=== PATIENT | male | born 1930 | race American Indian/Alaskan Native ===

== ENCOUNTER 2016-06-03 03:34 | Inpatient (IN) | payer MEDICARE ==
[2016-06-03] MEDS ORDERED: NACL 0.9% 1000 ML 250 ML IV ONE (05:06)
[2016-06-03 05:37] LABS: Basophils % (Auto) 0.2 % (0.0-1.8); Eosinophils % (Auto) 1.4 % (0.0-4.3); Hematocrit 20.5 % (35.5-45.6); Hemoglobin 6.4 gm/dl (11.8-15.2); Mean Corpuscular HGB Conc 31 % (32-34); Mean Corpuscular Hemoglobin 30 pg (28-32); Mean Corpuscular Volume 95 fl (84-94); Platelet Count 159 K/mm3 (140-440); Red Blood Count 2.16 M/mm3 (3.65-5.03); Red Cell Distribution Width 19.3 % (13.2-15.2); White Blood Count 5.1 K/mm3 (4.5-11.0)
[2016-06-03 05:47] LABS: INR 1.2 (0.87-1.13)
[2016-06-03 05:48] LABS: Partial Thromboplastin Time 37.8 Sec. (24.2-36.6)
[2016-06-03 05:54] LABS: Creatine Kinase MB 3.8 ng/mL (0.0-4.0)
[2016-06-03 05:56] LABS: Albumin 3.4 g/dL (3.9-5); Albumin/Globulin Ratio 1.1 %; BUN/Creatinine Ratio 18.52; Bilirubin,Total 0.4 mg/dL (0.1-1.2); Calcium 8.9 mg/dL (8.4-10.2); Chloride 101.4 mmol/L (98-107); Potassium 5.8 mmol/L (3.6-5.0); Total Protein 6.5 g/dL (6.3-8.2)
--- NOTE | 2016-06-03 06:51 | Emergency Department Report ---
HPI - General Chief Complaint: Weakness Time Seen by Provider: 06/03/16 06:36 - HPI HPI: The patient is a 85-year-old male with a history of diabetes and anemia, who presents for evaluation of generalized weakness. The patient reports progressive generalized weakness for the past 2 weeks, severe since last night, 12 hours ago, exacerbated with standing or ambulation, and improved with lying flat and resting. He states that his weakness became so severe that he could not stand up or ambulate last night, prompting presentation to the emergency department. The patient denies fever, head injury, headache, chest pain, cough, hemoptysis, abdominal pain, vision or hearing changes, smell or taste changes, paresthesias, facial drooping, slurred speech, seizure-like activity, urine or bowel incontinence or retention, or other focal neurological deficit. ED Past Medical Hx - Past Medical History Hx Hypertension: Yes Hx Heart Attack/AMI: No Hx Diabetes: Yes (15 yrs plus) Hx GERD: Yes Hx Renal Disease: Yes (stage 4 kidney disease) Hx Arthritis: Yes (KNEES, RIGHT SHOULDER) Hx Kidney Stones: Yes Hx Asthma: Yes Hx COPD: Yes Additional medical history: gout, anemia - Surgical History Hx Open Heart Surgery: Yes (PACEMAKER X2.) Hx Pacemaker: Yes (insert 15 yrs ago) Hx Internal Defibrillator: No Additional Surgical History: "worked on heart > 50 yrs ago"right knee replacement - Social History Smoking Status: Never Smoker Substance Use Type: None - Medications Home Medications: Home Medications Medication Instructions Recorded Confirmed Last Taken Type Allopurinol [Zyloprim] 300 mg PO QDAY 04/09/13 02/11/16 02/10/16 History Ferrous Sulfate [Feosol 325 MG tab] 325 mg PO DAILY 04/09/13 02/11/16 02/10/16 History Ondansetron [Zofran Odt] 4 mg PO TID PRN 04/09/13 02/11/16 02/10/16 History Potassium Chloride 20 meq PO QDAY 04/09/13 02/11/16 02/10/16 History Tamsulosin [Flomax] 0.4 mg PO QDAY 04/09/13 02/11/16 02/10/16 History Acetaminophen [Acetaminophen TAB] 2 tab PO PRN PRN 11/21/14 02/11/16 02/10/16 History Vitamin B Complex [Natural B-100] 1 tab PO DAILY 11/21/14 02/11/16 02/10/16 History Losartan/Hydrochlorothiazide 1 each PO QDAY 02/15/15 02/11/16 02/10/16 History [Hyzaar 100-12.5 TAB] Ranolazine [Ranexa] 1,000 mg PO BID 02/15/15 02/11/16 02/10/16 History glipiZIDE [glipiZIDE XL] 2.5 mg PO DAILY 02/15/15 02/11/16 02/10/16 History Desloratadine [Clarinex] 5 mg PO DAILY 02/11/16 02/11/16 02/10/16 History Meclizine [Antivert] 12.5 mg PO BID PRN 02/11/16 02/11/16 02/10/16 History metFORMIN [Glucophage] 1,000 mg PO QDAY 02/11/16 02/11/16 02/10/16 History Allopurinol [Zyloprim] 150 mg PO QDAY tablet 02/14/16 Unknown Rx Furosemide [Lasix TAB] 40 mg PO QDAY tablet 02/14/16 Unknown Rx Hydrochlorothiazide [HCTZ] 12.5 mg PO QDAY capsule 02/14/16 Unknown Rx Losartan [Cozaar] 100 mg PO QDAY tablet 02/14/16 Unknown Rx Metoprolol Xl [Metoprolol 50 mg PO QDAY tablet 02/14/16 Unknown Rx SUCCINATE ER TAB] Potassium Chloride [K-Dur] 20 meq PO QDAY tablet 02/14/16 Unknown Rx ED Review of Systems ROS: Stated complaint: GENERAL WEAKNESS Other details as noted in HPI Constitutional: Reports generalized weakness denies: fever ENT: denies: throat or neck pain Respiratory: denies: cough, shortness of breath Cardiovascular: denies: chest pain Endocrine: denies unexplained weight loss or gain Gastrointestinal: denies: abdominal pain, nausea Genitourinary: denies: dysuria Musculoskeletal: denies: leg swelling Skin: denies: rash Neurological: denies: headache Hematological/Lymphatic: denies: easy bleeding or easy bruising Psych: denies sadness or hopelessness Physical Exam - Physical Exam Vital Signs: Vital Signs 06/03/16 06/03/16 06/03/16 04:15 04:30 04:32 Temperature 97.7 F Pulse Rate 60 60 61 Respiratory 18 15 15 Rate Blood Pressure 112/43 112/43 O2 Sat by Pulse 96 98 100 Oximetry 06/03/16 06/03/16 06/03/16 04:34 04:36 04:38 Temperature Pulse Rate 60 60 60 Respiratory 21 18 18 Rate Blood Pressure 112/43 112/43 112/43 O2 Sat by Pulse 100 100 100 Oximetry 06/03/16 06/03/16 06/03/16 04:40 04:42 04:44 Temperature Pulse Rate 71 63 Respiratory 22 21 18 Rate Blood Pressure 112/43 112/43 112/43 O2 Sat by Pulse 99 89 98 Oximetry 06/03/16 06/03/16 06/03/16 04:46 04:48 04:50 Temperature Pulse Rate 60 64 60 Respiratory 14 24 17 Rate Blood Pressure 112/43 112/43 112/43 O2 Sat by Pulse 93 95 98 Oximetry 06/03/16 06/03/16 06/03/16 04:52 04:54 04:56 Temperature Pulse Rate 60 59 L 60 Respiratory 15 17 17 Rate Blood Pressure 64/31 64/31 O2 Sat by Pulse 100 92 99 Oximetry 06/03/16 06/03/16 06/03/16 04:58 05:00 05:02 Temperature Pulse Rate 63 76 60 Respiratory 18 16 26 H Rate Blood Pressure O2 Sat by Pulse 98 100 98 Oximetry 06/03/16 06/03/16 06/03/16 05:04 05:06 05:08 Temperature Pulse Rate 60 60 60 Respiratory 16 17 16 Rate Blood Pressure 50/23 64/31 O2 Sat by Pulse 98 99 99 Oximetry 06/03/16 06/03/16 06/03/16 05:10 05:12 05:14 Temperature Pulse Rate 60 61 63 Respiratory 16 18 15 Rate Blood Pressure 136/43 132/52 139/54 O2 Sat by Pulse 96 96 99 Oximetry 06/03/16 05:43 Temperature 97.7 F Pulse Rate Respiratory Rate Blood Pressure O2 Sat by Pulse Oximetry Physical Exam: General: well-nourished, well-developed, no acute distress Head: Normocephalic, atraumatic Eyes: normal sclera ENT: Mucous membranes are pale Neck: trachea midline, neck supple, No neck stiffness, no cervical adenopathy Respiratory: Breath sounds equal bilaterally, no wheezing, rales, or rhonchi Cardio: S1 and S2 present, no murmurs, rubs, gallops, capillary refill is delayed Abdomen: Normoactive bowel sounds, soft abdomen, no rigidity, no guarding or rebound tenderness Chest WALL/Back: No tenderness to palpation of the chest wall, no CVA tenderness with percussion Musc: No pitting edema Skin: No rash Neuro: Alert and oriented 3, no facial drooping, normal speech, no pronator drift, no obvious gross neuro deficits Psych: Normal affect ED Course Vital Signs 06/03/16 06/03/16 06/03/16 04:15 04:30 04:32 Temperature 97.7 F Pulse Rate 60 60 61 Respiratory 18 15 15 Rate Blood Pressure 112/43 112/43 O2 Sat by Pulse 96 98 100 Oximetry 06/03/16 06/03/16 06/03/16 04:34 04:36 04:38 Temperature Pulse Rate 60 60 60 Respiratory 21 18 18 Rate Blood Pressure 112/43 112/43 112/43 O2 Sat by Pulse 100 100 100 Oximetry 06/03/16 06/03/16 06/03/16 04:40 04:42 04:44 Temperature Pulse Rate 71 63 Respiratory 22 21 18 Rate Blood Pressure 112/43 112/43 112/43 O2 Sat by Pulse 99 89 98 Oximetry 06/03/16 06/03/16 06/03/16 04:46 04:48 04:50 Temperature Pulse Rate 60 64 60 Respiratory 14 24 17 Rate Blood Pressure 112/43 112/43 112/43 O2 Sat by Pulse 93 95 98 Oximetry 06/03/16 06/03/16 06/03/16 04:52 04:54 04:56 Temperature Pulse Rate 60 59 L 60 Respiratory 15 17 17 Rate Blood Pressure 64/31 64/31 O2 Sat by Pulse 100 92 99 Oximetry 06/03/16 06/03/16 06/03/16 04:58 05:00 05:02 Temperature Pulse Rate 63 76 60 Respiratory 18 16 26 H Rate Blood Pressure O2 Sat by Pulse 98 100 98 Oximetry 06/03/16 06/03/16 06/03/16 05:04 05:06 05:08 Temperature Pulse Rate 60 60 60 Respiratory 16 17 16 Rate Blood Pressure 50/23 64/31 O2 Sat by Pulse 98 99 99 Oximetry 06/03/16 06/03/16 06/03/16 05:10 05:12 05:14 Temperature Pulse Rate 60 61 63 Respiratory 16 18 15 Rate Blood Pressure 136/43 132/52 139/54 O2 Sat by Pulse 96 96 99 Oximetry 06/03/16 05:43 Temperature 97.7 F Pulse Rate Respiratory Rate Blood Pressure O2 Sat by Pulse Oximetry ED Medical Decision Making - Lab Data Result diagrams: 06/03/16 05:13 06/03/16 05:13 - Medical Decision Making The patient was seen and examined by myself. The patient is placed on a continuous dryout operator helper and continuous pulse ox. On initial evaluation, the patient was found to be in no distress. Evaluation orders were placed. EKG demonstrates a paced rhythm. The patient is given a small NS fluid bolus for treatment of dehydration. Lab results revealed low hemoglobin of 6.4, elevated potassium level of 5.8, elevated BUN/creatinine of 64 and 3.4 respectively. The patient is given Kayexalate for treatment of hyperkalemia. One unit of PRBCs is ordered for the patient's severe anemia. The on-call hospitalist service was contacted. They agreed to admit the patient for further treatment and close monitoring. The ED admit order was placed. The patient was admitted in guarded condition. Critical care attestation.: If time is entered above; I have spent that time in minutes in the direct care of this critically ill patient, excluding procedure time. ED Disposition Clinical Impression: Anemia requiring transfusions, Severe anemia, Weakness, Acute hyperkalemia, KHANG (acute kidney injury) Disposition: OP ADMITTED IP TO THIS HOSP Is pt being admited?: Yes Does the pt Need Aspirin: Yes Condition: Serious Referrals: LARRY CARBJAAL MD [Primary Care Provider] - 3-5 Days Time of Disposition: 06:50
[2016-06-03] MEDS ORDERED: BABY ASPIRIN PO ONE (06:53)
[2016-06-03] MEDS ORDERED: NACL 0.9% 500 ML 500 ML IV ONE ×2 (06:53→09:00)
[2016-06-03] MEDS ORDERED: KAYEXALATE PO ONE (06:55)
[2016-06-03] MEDS ORDERED: MORPHINE IV ONE (07:15)
--- NOTE | 2016-06-03 07:47 | XRay Report ---
AP CHEST History: Weakness. Findings: Compared to 02/11/16. There is poor inspiration on this exam. Heart size and pulmonary venous structures are borderline. 3-lead pacemaker device is unchanged. The lungs are clear. No evidence for pneumonia, pleural effusion or pneumothorax. Impression: Borderline heart size and pulmonary vascularity. Perhaps slightly increased since 02/11/16.
--- NOTE | 2016-06-03 08:04 | History and Physical Report ---
History of Present Illness Chief complaint: I feel weak,and tired History of present illness: 85 YO Male with HTN, DM, CHF(unknown EF), GERD, OA, Asthma, COPD, Gout, Anemia of Chronic disease presents to ED for evaluation. Pt states that he has experienced weakness for the past 2 weeks, with worsening symptoms over the past 12hrs. Pt states that his weakness and shortness of breath have become so severe that he could not stand up or ambulate. Pt acknowledges Orthopnea, PND. Pt denies fever, chills, CP, Palpitations, Trauma, NVD, prolonged travel/ immobility, Individual/Family history of EVT/PE, hemoptysis, syncope, vertigo, hematuria, BRBPR, or recent ill contacts. Past History Past Medical History: anemia, arthritis, CAD, cancer, COPD, diabetes, GERD, heart failure, hypertension, renal failure Past Surgical History: total knee replacement, Other (ICD placement) Social history: , lives with family. denies: smoking, alcohol abuse, prescription drug abuse Family history: diabetes, hypertension Medications and Allergies Allergies Allergy/AdvReac Type Severity Reaction Status Date / Time No Known Allergies Allergy Verified 09/28/13 11:10 Home Medications Medication Instructions Recorded Confirmed Last Taken Type Allopurinol [Zyloprim] 300 mg PO QDAY 04/09/13 02/11/16 02/10/16 History Ferrous Sulfate [Feosol 325 MG tab] 325 mg PO DAILY 04/09/13 02/11/16 02/10/16 History Ondansetron [Zofran Odt] 4 mg PO TID PRN 04/09/13 02/11/16 02/10/16 History Potassium Chloride 20 meq PO QDAY 04/09/13 02/11/16 02/10/16 History Tamsulosin [Flomax] 0.4 mg PO QDAY 04/09/13 02/11/16 02/10/16 History Acetaminophen [Acetaminophen TAB] 2 tab PO PRN PRN 11/21/14 02/11/16 02/10/16 History Vitamin B Complex [Natural B-100] 1 tab PO DAILY 11/21/14 02/11/16 02/10/16 History Losartan/Hydrochlorothiazide 1 each PO QDAY 02/15/15 02/11/16 02/10/16 History [Hyzaar 100-12.5 TAB] Ranolazine [Ranexa] 1,000 mg PO BID 02/15/15 02/11/16 02/10/16 History glipiZIDE [glipiZIDE XL] 2.5 mg PO DAILY 02/15/15 02/11/16 02/10/16 History Desloratadine [Clarinex] 5 mg PO DAILY 02/11/16 02/11/16 02/10/16 History Meclizine [Antivert] 12.5 mg PO BID PRN 02/11/16 02/11/16 02/10/16 History metFORMIN [Glucophage] 1,000 mg PO QDAY 02/11/16 02/11/16 02/10/16 History Allopurinol [Zyloprim] 150 mg PO QDAY tablet 02/14/16 Unknown Rx Furosemide [Lasix TAB] 40 mg PO QDAY tablet 02/14/16 Unknown Rx Hydrochlorothiazide [HCTZ] 12.5 mg PO QDAY capsule 02/14/16 Unknown Rx Losartan [Cozaar] 100 mg PO QDAY tablet 02/14/16 Unknown Rx Metoprolol Xl [Metoprolol 50 mg PO QDAY tablet 02/14/16 Unknown Rx SUCCINATE ER TAB] Potassium Chloride [K-Dur] 20 meq PO QDAY tablet 02/14/16 Unknown Rx Review of Systems All systems: negative Cardiovascular: shortness of breath Exam - Constitutional Vitals: Temp Pulse Resp BP Pulse Ox 97.7 F 63 15 139/54 99 06/03/16 05:43 06/03/16 05:14 06/03/16 05:14 06/03/16 05:14 06/03/16 05:14 General appearance: Present: mild distress, obese - EENT Eyes: Present: PERRL ENT: hearing intact, clear oral mucosa - Neck Neck: Present: supple, normal ROM - Respiratory Respiratory effort: normal Respiratory: bilateral: CTA - Cardiovascular Heart Sounds: Present: S1 & S2. Absent: rub, click - Extremities Extremities: pulses symmetrical, No edema Peripheral Pulses: within normal limits - Abdominal General gastrointestinal: Present: soft, non-tender, non-distended, normal bowel sounds Male genitourinary: Present: normal - Integumentary Integumentary: Present: clear, warm, dry - Musculoskeletal Musculoskeletal: generalized weakness - Psychiatric Psychiatric: appropriate mood/affect, intact judgment & insight - Neurologic Neurologic: CNII-XII intact, moves all extremities Results - Labs CBC & Chem 7: 06/03/16 05:13 06/03/16 05:13 Labs: Abnormal lab results 06/03/16 06/03/16 06/03/16 Range/Units 05:13 05:13 05:13 RBC 2.16 L (3.65-5.03) M/mm3 Hgb 6.4 L (11.8-15.2) gm/dl Hct 20.5 L (35.5-45.6) % MCV 95 H (84-94) fl MCHC 31 L (32-34) % RDW 19.3 H (13.2-15.2) % Lymph % (Auto) 10.6 L (13.4-35.0) % Lymph # 0.5 L (1.2-5.4) K/mm3 Seg Neutrophils % 82.3 H (40.0-70.0) % PT 15.1 H (12.2-14.9) Sec. INR 1.20 H (0.87-1.13) APTT 37.8 H (24.2-36.6) Sec. Potassium 5.8 H (3.6-5.0) mmol/L Carbon Dioxide 21 L (22-30) mmol/L BUN 63 H (9-20) mg/dL Creatinine 3.4 H (0.8-1.5) mg/dL Glucose 124 H (75-100) mg/dL Albumin 3.4 L (3.9-5) g/dL Crossmatch 06/03/16 Range/Units 05:13 RBC (3.65-5.03) M/mm3 Hgb (11.8-15.2) gm/dl Hct (35.5-45.6) % MCV (84-94) fl MCHC (32-34) % RDW (13.2-15.2) % Lymph % (Auto) (13.4-35.0) % Lymph # (1.2-5.4) K/mm3 Seg Neutrophils % (40.0-70.0) % PT (12.2-14.9) Sec. INR (0.87-1.13) APTT (24.2-36.6) Sec. Potassium (3.6-5.0) mmol/L Carbon Dioxide (22-30) mmol/L BUN (9-20) mg/dL Creatinine (0.8-1.5) mg/dL Glucose (75-100) mg/dL Albumin (3.9-5) g/dL Crossmatch See Detail Assessment and Plan - Patient Problems (1) Anemia requiring transfusions Current Visit: Yes Status: Acute Plan to address problem: PRBC transfusion, supportive care, repeat cbc in am. (2) KHANG (acute kidney injury) Current Visit: Yes Status: Acute Plan to address problem: IVF, supportive care, urine electrolytes, monitor uop q shift. (3) Hyperkalemia Current Visit: Yes Status: Acute (4) CHF (congestive heart failure) Current Visit: Yes Status: Suspected Plan to address problem: Echo, supportive care, serial cardiac enzymes, telemetry, (5) Debility Current Visit: Yes Status: Acute Plan to address problem: PT consulted, (6) DVT prophylaxis Current Visit: Yes Status: Acute
[2016-06-03] MEDS ORDERED: TYLENOL PO PRN ×2 (08:08→11:41)
[2016-06-03] MEDS ORDERED: SODIUM CHLORIDE FLUSH SYRINGE 10 ML IV PRN (08:13)
[2016-06-03] MEDS ORDERED: NACL 0.45% 1000 ML 1,000 ML IV SCH (09:00)
--- NOTE | 2016-06-03 09:03 | Admit Criteria Form ---
Admission Criteria Documentation: ANEMIA, IRON DEFICIENCY OR UNSPECIFIED Clinical Indications for Inpatient Care (Place 'X' for any and all applicable criteria): Admission is indicated for ANY ONE of the following(1)(2)(3)(4)(5)(6)(7): [X] I. Inpatient admission required rather than observation care (Also use Anemia, Iron Deficiency or Unspecified: Observation Care guideline as appropriate) because of ANY ONE of the following: [] a) Hemodynamic instability that is severe or persistent [] b) Active bleeding that cannot be rapidly controlled [] c) CVS symptoms (i.e., dyspnea, chest pain, heart failure) that are severe or persistent [] d) Neurologic symptoms (i.e., cognitive impairment, recurrent syncope or near syncope) that are severe or persistent [] e) Cardiac arrhythmias of immediate concern [] f) Acute peripheral ischemia (e.g., pulseless, cool, mottled, or cyanotic extremity) [] g) High-risk low platelet count [X] h) Acute renal failure [] i) Ongoing transfusion for blood loss (greater than 2 units) [] j) IV fluid to replace significant ongoing (eg, >24 hours) losses (> 3 L/m2 per day) [] k) Pulmonary artery catheter monitoring [] l) Supplemental oxygen or respiratory treatments for over 24 hours that are performable only in acute inpatient setting [] m) Immediate inpatient surgery [] n) Other condition, treatment or monitoring requiring inpatient admission [] II Active massive hemorrhage [] III. Active hemolysis with rapidly progressive anemia [A](6) Extended stay beyond goal length of stay may be needed for (17)(18) []a) Diagnosed cause of anemia requiring longer hospitalization (eg, active GI bleeding, immune hemolysis requiring electrophoresis, complications of malignancy requiring acute care []b) Continued emergent anemia indicators (23) []c) Transfusion reactions []d) Associated leukopenia or thrombocytopenia needing inpatient care []e) Active comorbidities (eg, renal failure, heart failure) The original [facility] Care Guidelines content created by [facility] Care Guidelines has been revised. The portions of the content which have been revised are identified through the use of italic text or in bold. [facility] Guidelines has neither reviewed nor approved the modified material. All other unmodified content is copyright [facility] Care Guidelines. Please see references footnoted in the original [facility] edition 2016 Admission Criteria Met: Yes
[2016-06-03] MEDS ORDERED: ZOFRAN ODT PO PRN (11:41)
[2016-06-03] MEDS ORDERED: ANTIVERT PO PRN (11:41)
[2016-06-03] MEDS ORDERED: NACL 0.9% 500 ML 500 ML IV NR (12:00)
[2016-06-03 20:28] LABS: Creatine Kinase MB 3.3 ng/mL (0.0-4.0)
[2016-06-03 21:16] LABS: Creatine Kinase MB 3.3 ng/mL (0.0-4.0)
[2016-06-03] MEDS ORDERED: NON-FORMULARY (Ranolazine [Ranexa] 1,000 MG) PO SCH (22:00)
[2016-06-03] MEDS: RANEXA ER PO SCH (22:17)
[2016-06-04 08:12] LABS: Albumin 3.2 g/dL (3.9-5); Albumin/Globulin Ratio 1.1 %; BUN/Creatinine Ratio 20.38; Bilirubin,Total 0.6 mg/dL (0.1-1.2); Calcium 8.8 mg/dL (8.4-10.2); Potassium 4.8 mmol/L (3.6-5.0)
[2016-06-04] MEDS: FLOMAX PO SCH (09:36)
[2016-06-04] MEDS: TOPROL XL PO SCH (09:36)
[2016-06-04] MEDS: CLARITIN PO SCH (09:36)
[2016-06-04] MEDS: FEOSOL PO SCH (09:36)
[2016-06-04] MEDS: RANEXA ER PO SCH ×2 (09:37→20:59)
[2016-06-04] MEDS: ZYLOPRIM PO SCH (09:37)
[2016-06-04] MEDS ORDERED: POTASSIUM CHLORIDE PO SCH (10:00)
[2016-06-04] MEDS ORDERED: HCTZ PO SCH (10:00)
[2016-06-04] MEDS ORDERED: K-DUR PO SCH (10:00)
[2016-06-04] MEDS ORDERED: LASIX PO SCH (10:00)
[2016-06-04] MEDS ORDERED: DESLORATADINE 5 MG PO SCH (10:00)
[2016-06-04] MEDS ORDERED: COZAAR PO SCH (10:00)
[2016-06-04] MEDS ORDERED: NON-FORMULARY (Losartan/Hydrochlorothiazide [Hyzaar 100-12.5 Tab] 1 EACH) PO SCH (10:00)
[2016-06-04 14:32] LABS: Hematocrit 26.7 % (35.5-45.6); Hemoglobin 8.6 gm/dl (11.8-15.2); Mean Corpuscular HGB Conc 32 % (32-34); Mean Corpuscular Hemoglobin 29 pg (28-32); Mean Corpuscular Volume 92 fl (84-94); Platelet Count 159 K/mm3 (140-440); Red Blood Count 2.92 M/mm3 (3.65-5.03); Red Cell Distribution Width 17.8 % (13.2-15.2); White Blood Count 5.8 K/mm3 (4.5-11.0)
--- NOTE | 2016-06-04 15:08 | Progress Note ---
Assessment and Plan Assessment and plan: (1) Anemia requiring transfusions Received blood transfusion, with appropriate rise in hemoglobin, most likely benefit from GI workup, GI consult for possible EGD (2) KHANG (acute kidney injury) /vasomotor nephropathy Due to vasomotor nephropathy, already improving with IV fluids, continue IV fluids, discontinue diuretics, ARB and all nephrotoxic agents (3) Hyperkalemia Has now resolved, discontinue potassium supplements (4) CHF (congestive heart failure) Follow-up echo, give fluids judiciously, (5) Debility PT consult, patient's lives in a detention (6) DVT prophylaxis SCDs in light of likely acute blood loss anemia History Interval history: The patient is confused and is not quite sure why he is here, he loses in the hospital to get some things checked out and fixed. Hospitalist Physical - Physical exam Narrative exam: General: Patient appears well in no distress HEENT: MMM, EOMI cardiac: S1-S2 heard lungs: clear to auscultation, abdomen: soft, nontender, nondistended bowel sounds positive extremities: no edema clubbing or cyanosis Skin: no rash or lesion Neuro: no focal deficit, demented, obeys commands, very pleasant Psych: Patient is confabulating, talking constantly, he is demented and confused. - Constitutional Vitals: Temp Pulse Resp BP Pulse Ox 98.2 F 62 20 153/66 98 06/04/16 07:45 06/04/16 09:36 06/04/16 09:34 06/04/16 09:36 06/04/16 09:25 General appearance: Present: mild distress, obese Results - Labs CBC & Chem 7: 06/04/16 13:36 06/04/16 07:36 Labs: Laboratory Last Values WBC 5.8 K/mm3 (4.5-11.0) 06/04/16 13:36 RBC 2.92 M/mm3 (3.65-5.03) L 06/04/16 13:36 Hgb 8.6 gm/dl (11.8-15.2) L 06/04/16 13:36 Hct 26.7 % (35.5-45.6) L D 06/04/16 13:36 MCV 92 fl (84-94) D 06/04/16 13:36 MCH 29 pg (28-32) 06/04/16 13:36 MCHC 32 % (32-34) 06/04/16 13:36 RDW 17.8 % (13.2-15.2) H 06/04/16 13:36 Plt Count 159 K/mm3 (140-440) 06/04/16 13:36 Lymph % (Auto) 10.6 % (13.4-35.0) L 06/03/16 05:13 [place] % (Auto) 5.5 % (0.0-7.3) 06/03/16 05:13 Eos % (Auto) 1.4 % (0.0-4.3) 06/03/16 05:13 Baso % (Auto) 0.2 % (0.0-1.8) 06/03/16 05:13 Lymph # 0.5 K/mm3 (1.2-5.4) L 06/03/16 05:13 [place] # 0.3 K/mm3 (0.0-0.8) 06/03/16 05:13 Eos # 0.1 K/mm3 (0.0-0.4) 06/03/16 05:13 Baso # 0.0 K/mm3 (0.0-0.1) 06/03/16 05:13 Seg Neutrophils % 82.3 % (40.0-70.0) H 06/03/16 05:13 Seg Neutrophils # 4.2 K/mm3 (1.8-7.7) 06/03/16 05:13 PT 15.1 Sec. (12.2-14.9) H 06/03/16 05:13 INR 1.20 (0.87-1.13) H 06/03/16 05:13 APTT 37.8 Sec. (24.2-36.6) H 06/03/16 05:13 D-Dimer 196.90 ng/mlDDU (0-234) 06/03/16 19:41 Sodium 141 mmol/L (137-145) 06/04/16 07:36 Potassium 4.8 mmol/L (3.6-5.0) 06/04/16 07:36 Chloride 104.0 mmol/L (98-107) 06/04/16 07:36 Carbon Dioxide 23 mmol/L (22-30) 06/04/16 07:36 Anion Gap 19 mmol/L 06/04/16 07:36 BUN 53 mg/dL (9-20) H 06/04/16 07:36 Creatinine 2.6 mg/dL (0.8-1.5) H 06/04/16 07:36 Estimated GFR 29 ml/min 06/04/16 07:36 BUN/Creatinine Ratio 20.38 % 06/04/16 07:36 Glucose 119 mg/dL (75-100) H 06/04/16 07:36 POC Glucose 108 (70-105) H 06/04/16 12:02 Calcium 8.8 mg/dL (8.4-10.2) 06/04/16 07:36 Total Bilirubin 0.6 mg/dL (0.1-1.2) 06/04/16 07:36 AST 14 units/L (5-40) 06/04/16 07:36 ALT 7 units/L (7-56) 06/04/16 07:36 Alkaline Phosphatase 65 units/L (35-129) 06/04/16 07:36 Total Creatine Kinase 113 units/L (55-170) 06/03/16 20:27 CK-MB (CK-2) 3.3 ng/mL (0.0-4.0) 06/03/16 20:27 CK-MB (CK-2) Rel Index 2.9 (0-4) 06/03/16 20:27 Troponin T 0.020 ng/mL (0.00-0.029) 06/03/16 20:27 NT-Pro-B Natriuret Pep 270.5 pg/mL (0-900) 06/03/16 05:13 Total Protein 6.0 g/dL (6.3-8.2) L 06/04/16 07:36 Albumin 3.2 g/dL (3.9-5) L 06/04/16 07:36 Albumin/Globulin Ratio 1.1 % 06/04/16 07:36 Blood Type A POSITIVE 06/03/16 05:13 Antibody Screen Negative 06/03/16 05:13 Crossmatch See Detail 06/03/16 05:13
--- NOTE | 2016-06-05 10:49 | Discharge Summary ---
Providers - Providers Date of Admission: 06/03/16 08:08 Attending physician: OPAL SINGH MD 06/03/16 Consult to Cardiac Rehabilitation [CONS] Routine Reason For Exam: Phase I 06/03/16 11:40 Physical Therapy Evaluation and Treat [CONS] Routine Comment: Reason For Exam: weak 06/04/16 12:26 Consult to Physician [CONS] Routine Consulting Provider: BULL WORKMAN Reason For Exam: Anemia Place consult to:: Dr. Workman Notified:: Isaac RN Phone number called:: Was contact made?: Yes If yes, spoke with:: [place]-Office Time called:: 13:12 Primary care physician: LARRY CARBAJAL Hospitalization Condition: Serious Hospital course: Elderly man who came from [place] with complaint of weakness found to have severe anemia (1) Anemia requiring transfusions Received blood transfusion, with appropriate rise in hemoglobin, will need to fup with GI as outpatient for EGD and or C-scope (2) KHANG (acute kidney injury) /vasomotor nephropathy Due to vasomotor nephropathy, improved with IVF, discontinued all diuretics, ARB and all nephrotoxic agents (3) Hyperkalemia Has now resolved, discontinued potassium supplements and ARBS (4) CHF (congestive heart failure) he received an echo and IVF were given judiciously (5) Debility and Dementia received supportive care in hospital and he is going back to [place] (6) DVT prophylaxis SCDs Disposition: DC/TX SNF [facility] Time spent for discharge: 35 minutes Core Measure Documentation - Palliative Care Palliative Care/ Comfort Measures: Not Applicable - Core Measures Any of the following diagnoses?: none Exam - Physical Exam Narrative exam: General: Patient appears well in no distress HEENT: MMM, EOMI cardiac: S1-S2 heard lungs: clear to auscultation, abdomen: soft, nontender, nondistended bowel sounds positive extremities: no edema clubbing or cyanosis Skin: no rash or lesion Neuro: no focal deficit, demented, obeys commands, very pleasant Psych: Patient is confabulating, talking constantly, he is demented and confused. - Constitutional Vitals: Temp Pulse Resp BP Pulse Ox 97.5 F L 62 14 141/66 100 06/05/16 08:05 06/05/16 08:05 06/05/16 08:05 06/05/16 08:05 06/05/16 08:43 Plan Follow up with: LARRY CARBAJAL MD [Primary Care Provider] - 3-5 Days BULL WORKMAN MD [Staff Physician] - 7 Days
[2016-06-05] MEDS: ZYLOPRIM PO SCH (10:55)
[2016-06-05] MEDS: TOPROL XL PO SCH (10:55)
[2016-06-05] MEDS: CLARITIN PO SCH (10:55)
[2016-06-05] MEDS: RANEXA ER PO SCH (10:55)
[2016-06-05] MEDS: FEOSOL PO SCH (10:55)
[2016-06-05] MEDS: FLOMAX PO SCH (10:55)
[2016-06-05 12:30] LABS: Hematocrit 29.2 % (35.5-45.6); Hemoglobin 9.4 gm/dl (11.8-15.2); Mean Corpuscular HGB Conc 32 % (32-34); Mean Corpuscular Hemoglobin 29 pg (28-32); Mean Corpuscular Volume 91 fl (84-94); Platelet Count 172 K/mm3 (140-440); Red Blood Count 3.22 M/mm3 (3.65-5.03); Red Cell Distribution Width 17.3 % (13.2-15.2)
[2016-06-05 12:51] LABS: BUN/Creatinine Ratio 18.33; Calcium 9.1 mg/dL (8.4-10.2); Chloride 101.7 mmol/L (98-107); Potassium 4.5 mmol/L (3.6-5.0)
[2016-06-05 14:08] VITALS: BP 140/74
== END 2016-06-05 14:00 | DRG 811 ==
LOC: ED 03:34 → 4A 08:08
PROVIDERS: ADMIT Internal Medicine; ATTEND Internal Medicine
PROC: 30233N1 Transfusion of Nonautologous Red Blood Cells into Peripheral Vein, Percutaneous Approach (ICD-10-PCS; principal; 2016-06-03)
DX: D64.9 Anemia, unspecified (principal); N17.0 Acute kidney failure with tubular necrosis; I50.9 Heart failure, unspecified; E87.5 Hyperkalemia; E11.9 Type 2 diabetes mellitus without complications; I11.0 Hypertensive heart disease with heart failure; K21.9 Gastro-esophageal reflux disease without esophagitis; M17.11 Unilateral primary osteoarthritis, right knee; M19.011 Primary osteoarthritis, right shoulder; J45.909 Unspecified asthma, uncomplicated; J44.9 Chronic obstructive pulmonary disease, unspecified; F03.90 Unspecified dementia, unspecified severity, without behavioral disturbance, psychotic disturbance, mood disturbance, and anxiety; D63.8 Anemia in other chronic diseases classified elsewhere; M10.9 Gout, unspecified; I25.10 Atherosclerotic heart disease of native coronary artery without angina pectoris; Z83.3 Family history of diabetes mellitus; Z82.49 Family history of ischemic heart disease and other diseases of the circulatory system; Z95.0 Presence of cardiac pacemaker; Z95.1 Presence of aortocoronary bypass graft; Z96.651 Presence of right artificial knee joint; Z79.899 Other long term (current) drug therapy
CPT/HCPCS: 36415; 71010; 80048; 80053; 82550; 82553; 82962; 83880; 84484; 85025; 85027; 85379; 85610; 85730; 86850; 86900; 86901; 86920; 93005; 93010; 93306; 94760; J7040; P9016

== ENCOUNTER 2016-07-18 22:51 | Inpatient (IN) | payer MEDICARE ==
--- NOTE | 2016-07-18 23:58 | Emergency Department Report ---
Chief Complaint: Dyspnea/Respdistress Stated Complaint: SOB W/SWELLING - HPI History of Present Illness: Patient reports that he has a hx of CHF and relates that he has been feeling like his legs are swelling up for the past 2 days and has some distention in the abdomen. Denies any other symptoms. - ROS Review of Systems: Complains of bilateral leg swelling, abdominal distention .Denies any abdominal pain, chest pain, palpitations or any other symptoms. - Exam Vital Signs: Vital Signs 07/18/16 23:32 Temperature 98.2 F Pulse Rate 59 L Respiratory 20 Rate Blood Pressure 136/58 O2 Sat by Pulse 96 Oximetry Physical Exam: 2+bilateral lower extremity edema noted. CTA Bilaterally. Abdominal distention , decreased bowel sounds noted. No tenderness to palpation. MSE screening note: Focused history and physical exam performed. Due to findings the following was ordered: blood work ordered, ekg ordered, chest xray ordered, awaiting room placement. ED Disposition for MSE Condition: Stable
[2016-07-19 00:22] LABS: Basophils % (Auto) 0.5 % (0.0-1.8); Eosinophils % (Auto) 2.4 % (0.0-4.3); Hematocrit 28.1 % (35.5-45.6); Hemoglobin 8.9 gm/dl (11.8-15.2); Mean Corpuscular HGB Conc 32 % (32-34); Mean Corpuscular Hemoglobin 31 pg (28-32); Mean Corpuscular Volume 98 fl (84-94); Platelet Count 111 K/mm3 (140-440); Red Blood Count 2.88 M/mm3 (3.65-5.03); White Blood Count 4.7 K/mm3 (4.5-11.0)
[2016-07-19 00:26] LABS: Red Cell Distribution Width 23.4 % (13.2-15.2)
[2016-07-19 00:34] LABS: INR 1.26 (0.87-1.13)
[2016-07-19 00:45] LABS: Albumin 3.5 g/dL (3.9-5); Albumin/Globulin Ratio 1.2 %; BUN/Creatinine Ratio 17.22; Bilirubin,Total 0.6 mg/dL (0.1-1.2); Calcium 8.8 mg/dL (8.4-10.2); Chloride 102.1 mmol/L (98-107); Potassium 3.5 mmol/L (3.6-5.0); Total Protein 6.4 g/dL (6.3-8.2)
--- NOTE | 2016-07-19 08:43 | Emergency Department Report ---
HPI - General Chief Complaint: Dyspnea/Respdistress Time Seen by Provider: 07/19/16 08:02 - HPI HPI: Chief complaint: Shortness of breath, difficulty walking and pedal edema HPI: Patient is an 85-year-old male with a history of sick sinus syndrome with a pacemaker,, arthritis, asthma, congestive heart failure, COPD, dementia and diabetes, GERD, stage IV kidney disease, gout and hypertension. Patient was recently admitted symptomatic anemia given a transfusion. Recent cardiac cath was no coronary artery disease. Patient had a cardiac surgery greater than 50 years ago to remove tumor or aneurysm it is unclear exactly what surgery was. Patient states he does have something wrong with one of his valves. A [place] live-in significant other states that he's been having increasing shortness of breath and swelling with exertion which has gotten worse over the last month. Patient uses a walker to get around but is having significantly more trouble standing up and needs it a lot of help. Mode of arrival: private car Source: Patient and patient's significant and the old chart Context: See above Timing: See above Quality: Some pain to his lower extremities Severity: Mild Improved with: Rest Worsened with: Exertion Associated signs and symptoms: Dry cough, no chest pain, no fever nausea vomiting ED Past Medical Hx - Past Medical History Previous Medical History?: Yes Hx Hypertension: Yes Hx Congestive Heart Failure: Yes Hx Diabetes: Yes Hx GERD: Yes Hx Renal Disease: Yes (stage 4 kidney disease) Hx Arthritis: Yes Hx Kidney Stones: Yes Hx Asthma: Yes Hx COPD: Yes Hx Dementia: Yes Additional medical history: gout, anemia - Surgical History Past Surgical History?: Yes Hx Open Heart Surgery: Yes Hx Pacemaker: Yes Additional Surgical History: "worked on heart > 50 yrs ago"right knee replacement - Social History Smoking Status: Never Smoker - Medications Home Medications: Home Medications Medication Instructions Recorded Confirmed Last Taken Type Ferrous Sulfate [Feosol 325 MG tab] 325 mg PO DAILY 04/09/13 07/19/16 02/10/16 History Ondansetron [Zofran Odt] 4 mg PO TID PRN 04/09/13 07/19/16 02/10/16 History Tamsulosin [Flomax] 0.4 mg PO QDAY 04/09/13 07/19/16 02/10/16 History Acetaminophen [Acetaminophen TAB] 2 tab PO PRN PRN 0607/19/16 02/10/16 History Vitamin B Complex [Natural B-100] 1 tab PO DAILY 11/21/14 07/19/16 02/10/16 History Ranolazine [Ranexa] 1,000 mg PO BID 02/15/15 07/19/16 02/10/16 History Desloratadine [Clarinex] 5 mg PO DAILY 02/11/16 07/19/16 02/10/16 History Meclizine [Antivert] 12.5 mg PO BID PRN 02/11/16 07/19/16 02/10/16 History Metoprolol Xl [Metoprolol 50 mg PO QDAY tablet 02/14/16 07/19/16 Unknown Rx SUCCINATE ER TAB] Allopurinol [Zyloprim] 100 mg PO QDAY 07/19/16 07/19/16 Unknown History Furosemide [Lasix TAB] 40 mg PO DAILY 07/19/16 07/19/16 Unknown History ED Review of Systems ROS: Stated complaint: SOB W/SWELLING Other details as noted in HPI ROS Constitutional: No fever ENT: No uri symptoms Cardiovascular: No chest pain Respiratory: No sob or cough GI: No nausea vomiting or diarrhea : No dysuria frequency or urgency, Skin: No rash Neuro: No focal weakness or numbness Psych: No depression Trace/lymph: edema Physical Exam - Physical Exam Vital Signs: Vital Signs 07/18/16 07/19/16 07/19/16 23:32 07:23 07:27 Temperature 98.2 F 98.1 F Pulse Rate 59 L 64 Respiratory 20 16 20 Rate Blood Pressure 136/58 Blood Pressure 147/68 [Left] Blood Pressure 133/54 [Right] O2 Sat by Pulse 96 95 95 Oximetry 07/19/16 07:32 Temperature Pulse Rate 64 Respiratory Rate Blood Pressure Blood Pressure [Left] Blood Pressure [Right] O2 Sat by Pulse Oximetry Physical Exam: GENERAL: The patient is well-developed well-nourished . HEENT: Normocephalic. Atraumatic. Extraocular motions are intact. Patient has moist mucous membranes. NECK: Supple. No meningitic signs are noted. There is no adenopathy noted. CHEST/LUNGS: Clear to auscultation. There is no respiratory distress noted. HEART/CARDIOVASCULAR: Regular. There is no tachycardia. There is 2/6 systolic murmur. Pedal pulses intact ABDOMEN: Abdomen is soft, nontender. Patient has normal bowel sounds. There is no abdominal distention. SKIN: There is no rash. There is 2-3+ bilateral pedal edema. There is no diaphoresis. NEURO: The patient is awake, alert, and oriented. The patient is cooperative. The patient has no focal neurologic deficits. The patient has normal speech. MUSCULOSKELETAL: There is no tenderness or deformity. There is no evidence of acute injury. ED Course Vital Signs 07/18/16 07/19/16 07/19/16 23:32 07:23 07:27 Temperature 98.2 F 98.1 F Pulse Rate 59 L 64 Respiratory 20 16 20 Rate Blood Pressure 136/58 Blood Pressure 147/68 [Left] Blood Pressure 133/54 [Right] O2 Sat by Pulse 96 95 95 Oximetry 07/19/16 07:32 Temperature Pulse Rate 64 Respiratory Rate Blood Pressure Blood Pressure [Left] Blood Pressure [Right] O2 Sat by Pulse Oximetry - Reevaluation(s) Reevaluation #1: 07/19/16 09:[address] Chun. Will admit to Hospitalist 07/19/16 09:19 Patient will be given Lasix IV. ED Medical Decision Making - Lab Data Result diagrams: 07/18/16 23:40 07/18/16 23:40 Laboratory Tests 07/18/16 07/18/16 07/18/16 23:40 23:40 23:40 PT 15.7 H INR 1.26 H Troponin T 0.039 H NT-Pro-B Natriuret Pep Albumin 3.5 L LDL Cholesterol Direct 43 L HDL Cholesterol 35 L 07/18/16 23:40 PT INR Troponin T NT-Pro-B Natriuret Pep 990.2 H Albumin LDL Cholesterol Direct HDL Cholesterol - EKG Data -: EKG Interpreted by Me (atrial pacemaker) - EKG Data When compared to previous EKG there are: no significant change Interpretation: other (left axis deviation, incomplete right bundle branch block , anterior lateral T-wave changes.) - Radiology Data interpreted by me: Chest x-ray shows increased vasculature Critical care attestation.: If time is entered above; I have spent that time in minutes in the direct care of this critically ill patient, excluding procedure time. ED Disposition Clinical Impression: Acute exacerbation of congestive heart failure Qualifiers: Congestive heart failure type: unspecified congestive heart failure type Qualified Code(s): I50.9 - Heart failure, unspecified Disposition: OP ADMITTED IP TO THIS HOSP Is pt being admited?: Yes Does the pt Need Aspirin: Yes Condition: Stable Referrals: PRIMARY CARE,MD [Primary Care Provider] - 3-5 Days Time of Disposition: 09:04 (admit to the hospitalist)
[2016-07-19] MEDS ORDERED: ASPIRIN PO ONE (09:11)
[2016-07-19] MEDS ORDERED: LASIX IV ONE (09:20)
[2016-07-19] MEDS ORDERED: TYLENOL PO PRN ×2 (09:59→10:02)
--- NOTE | 2016-07-19 09:59 | History and Physical Report ---
History of Present Illness Date of examination: 07/19/16 Date of admission: 07/19/16 09:45 History of present illness: Patient is an 85-year-old male with a history of sick sinus syndrome with a pacemaker,, arthritis, asthma, congestive heart failure, COPD, dementia and diabetes, GERD, stage IV kidney disease, gout and hypertension. Patient was recently admitted symptomatic anemia given a transfusion. Recent cardiac cath was no coronary artery disease. Patient had a cardiac surgery greater than 50 years ago to remove tumor or aneurysm it is unclear exactly what surgery was. Patient states he does have something wrong with one of his valves. A [place]arm[place] live-in significant other states that he's been having increasing shortness of breath and swelling with exertion which has gotten worse over the last month. Patient uses a walker to get around but is having significantly more trouble standing up and needs it a lot of help. Past History Past Medical History: heart failure Medications and Allergies Allergies Allergy/AdvReac Type Severity Reaction Status Date / Time No Known Allergies Allergy Verified 09/28/13 11:10 Home Medications Medication Instructions Recorded Confirmed Last Taken Type Ferrous Sulfate [Feosol 325 MG tab] 325 mg PO DAILY 04/09/13 07/19/16 02/10/16 History Ondansetron [Zofran Odt] 4 mg PO TID PRN 04/09/13 07/19/16 02/10/16 History Tamsulosin [Flomax] 0.4 mg PO QDAY 04/09/13 07/19/16 02/10/16 History Acetaminophen [Acetaminophen TAB] 2 tab PO PRN PRN 11/21/14 07/19/16 02/10/16 History Vitamin B Complex [Natural B-100] 1 tab PO DAILY 11/21/14 07/19/16 02/10/16 History Ranolazine [Ranexa] 1,000 mg PO BID 02/15/15 07/19/16 02/10/16 History Desloratadine [Clarinex] 5 mg PO DAILY 02/11/16 07/19/16 02/10/16 History Meclizine [Antivert] 12.5 mg PO BID PRN 02/11/16 07/19/16 02/10/16 History Metoprolol Xl [Metoprolol 50 mg PO QDAY tablet 02/14/16 07/19/16 Unknown Rx SUCCINATE ER TAB] Allopurinol [Zyloprim] 100 mg PO QDAY 07/19/16 07/19/16 Unknown History Furosemide [Lasix TAB] 40 mg PO DAILY 07/19/16 07/19/16 Unknown History Exam - Constitutional Vitals: Temp Pulse Resp BP Pulse Ox 98.1 F 64 20 147/68 95 07/19/16 07:23 07/19/16 07:32 07/19/16 07:27 07/19/16 07:23 07/19/16 07:27 General appearance: Present: no acute distress - EENT Eyes: Present: PERRL, EOM intact ENT: hearing intact, clear oral mucosa - Neck Neck: Present: supple, normal ROM - Respiratory Respiratory effort: normal Respiratory: bilateral: CTA - Cardiovascular Rhythm: regular Heart Sounds: Present: S1 & S2 - Abdominal General gastrointestinal: Present: soft, non-tender, non-distended, normal bowel sounds Results - Labs CBC & Chem 7: 07/18/16 23:40 07/18/16 23:40 Labs: Laboratory Last Values WBC 4.7 K/mm3 (4.5-11.0) 07/18/16 23:40 RBC 2.88 M/mm3 (3.65-5.03) L 07/18/16 23:40 Hgb 8.9 gm/dl (11.8-15.2) L 07/18/16 23:40 Hct 28.1 % (35.5-45.6) L 07/18/16 23:40 MCV 98 fl (84-94) H 07/18/16 23:40 MCH 31 pg (28-32) 07/18/16 23:40 MCHC 32 % (32-34) 07/18/16 23:40 RDW 23.4 % (13.2-15.2) H 07/18/16 23:40 Plt Count 111 K/mm3 (140-440) L 07/18/16 23:40 Lymph % (Auto) 8.0 % (13.4-35.0) L 07/18/16 23:40 [place] % (Auto) 8.6 % (0.0-7.3) H 07/18/16 23:40 Eos % (Auto) 2.4 % (0.0-4.3) 07/18/16 23:40 Baso % (Auto) 0.5 % (0.0-1.8) 07/18/16 23:40 Lymph # 0.4 K/mm3 (1.2-5.4) L 07/18/16 23:40 [place] # 0.4 K/mm3 (0.0-0.8) 07/18/16 23:40 Eos # 0.1 K/mm3 (0.0-0.4) 07/18/16 23:40 Baso # 0.0 K/mm3 (0.0-0.1) 07/18/16 23:40 Seg Neutrophils % 80.5 % (40.0-70.0) H 07/18/16 23:40 Seg Neutrophils # 3.8 K/mm3 (1.8-7.7) 07/18/16 23:40 PT 15.7 Sec. (12.2-14.9) H 07/18/16 23:40 INR 1.26 (0.87-1.13) H 07/18/16 23:40 Sodium 142 mmol/L (137-145) 07/18/16 23:40 Potassium 3.5 mmol/L (3.6-5.0) L 07/18/16 23:40 Chloride 102.1 mmol/L (98-107) 07/18/16 23:40 Carbon Dioxide 24 mmol/L (22-30) 07/18/16 23:40 Anion Gap 19 mmol/L 07/18/16 23:40 BUN 31 mg/dL (9-20) H 07/18/16 23:40 Creatinine 1.8 mg/dL (0.8-1.5) H 07/18/16 23:40 Estimated GFR 44 ml/min 07/18/16 23:40 BUN/Creatinine Ratio 17.22 % 07/18/16 23:40 Glucose 146 mg/dL (75-100) H 07/18/16 23:40 Calcium 8.8 mg/dL (8.4-10.2) 07/18/16 23:40 Total Bilirubin 0.6 mg/dL (0.1-1.2) 07/18/16 23:40 AST 25 units/L (5-40) 07/18/16 23:40 ALT 10 units/L (7-56) 07/18/16 23:40 Alkaline Phosphatase 87 units/L (35-129) 07/18/16 23:40 Troponin T 0.029 ng/mL (0.00-0.029) 07/19/16 08:15 NT-Pro-B Natriuret Pep 990.2 pg/mL (0-900) H 07/18/16 23:40 Total Protein 6.4 g/dL (6.3-8.2) 07/18/16 23:40 Albumin 3.5 g/dL (3.9-5) L 07/18/16 23:40 Albumin/Globulin Ratio 1.2 % 07/18/16 23:40 Triglycerides 80 mg/dL (2-149) 07/18/16 23:40 Cholesterol 94 mg/dL (50-199) 07/18/16 23:40 LDL Cholesterol Direct 43 mg/dL (50-130) L 07/18/16 23:40 HDL Cholesterol 35 mg/dL (40-59) L 07/18/16 23:40 Cholesterol/HDL Ratio 2.68 % 07/18/16 23:40 Assessment and Plan - Patient Problems (1) Acute exacerbation of congestive heart failure Current Visit: Yes Status: Acute Qualifiers: Congestive heart failure type: unspecified congestive heart failure type Qualified Code(s): I50.9 - Heart failure, unspecified Plan to address problem: Admit to Telemetry, Cardiology Consult, 2D Echo, Follow Troponins, Lasix, Carvedilol, Jeremy inhibitor (2) KHANG (acute kidney injury) Current Visit: No Status: Acute Plan to address problem: Unsure if this acute or chronic but will get Nephrology input
[2016-07-19] MEDS ORDERED: LASIX PO SCH (10:00)
[2016-07-19] MEDS ORDERED: DESLORATADINE 5 MG PO SCH (10:00)
[2016-07-19] MEDS ORDERED: PERCOCET 5/325 PO PRN (10:02)
[2016-07-19] MEDS ORDERED: ZOFRAN IV PRN (10:02)
[2016-07-19] MEDS ORDERED: SODIUM CHLORIDE FLUSH SYRINGE 10 ML IV PRN (10:02)
[2016-07-19] MEDS ORDERED: MILK OF MAGNESIA PO PRN (10:02)
--- NOTE | 2016-07-19 10:15 | XRay Report ---
CHEST X-RAY, 2 VIEWS History: Weakness. Findings: Borderline to mild cardiomegaly and pulmonary venous congestion are stable since 06/03/16. Trace right pleural effusion is suspected. No consolidation or pneumothorax. 3-lead pacemaker device remains in the same position. Impression: Correlate for mild CHF.
[2016-07-19 10:55] LABS: Creatine Kinase MB 2.7 ng/mL (0.0-4.0)
[2016-07-19] MEDS ORDERED: DULCOLAX PR PRN (11:00)
[2016-07-19] MEDS ORDERED: ANTIVERT PO PRN (11:00)
[2016-07-19 11:30] LABS: Bilirubin,Urine NEG (Negative); Blood,Urine NEG (Negative); Ketones,Urine NEG (Negative); Leukocyte Esterase,Urine NEG (Negative); Mucus,Urine FEW /HPF; Nitrite,Urine NEG (Negative); Urobilinogen,Urine < 2.0 mg/dL (<2.0)
[2016-07-19 11:32] LABS: RBC,Urine < 1.0 /HPF (0.0-6.0)
[2016-07-19] MEDS ORDERED: LASIX ONE (11:50)
[2016-07-19] MEDS ORDERED: ASPIRIN ONE (11:51)
[2016-07-19] MEDS ORDERED: ZOFRAN ODT PO PRN (12:00)
--- NOTE | 2016-07-19 12:55 | Consultation ---
History of Present Illness Consult date: 07/19/16 Consult reason: congestive heart failure, shortness of breath History of present illness: This patient is an 85-year-old man who presented to the hospital with complaints of fatigue and exertional dyspnea. He has also noticed increasing swelling in his abdomen and lower extremities. He has not experienced any palpitations, chest pain, or syncope. The patient has extensive cardiac ischemic workup including a cardiac catheterization 3 years ago in 2012, which demonstrated no significant coronary disease. He has an indwelling dual-chamber pacemaker for a history of sick sinus syndrome. There is a remote history of cardiothoracic surgery, which he states was in 1965. 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 The detailed report of this surgery are not available. He was recently hospitalized due to symptomatic anemia. Echocardiogram on 06/03/16 had revealed EF of 35-40%, 4 chamber dilation, moderate TR and pulmonary hypertension ECG todayreveals atrial paced rhythm with LAFB, incomplete RBBB, nonspecific ST changes Past History Past Medical History: COPD, diabetes, heart failure, hypertension, renal failure Past Surgical History: Other (cardiac tumor resection, pacemaker implant) Social history: denies: smoking Family history: CAD Medications and Allergies Allergies Allergy/AdvReac Type Severity Reaction Status Date / Time No Known Allergies Allergy Verified 09/28/13 11:10 Home Medications Medication Instructions Recorded Confirmed Last Taken Type Ferrous Sulfate [Feosol 325 MG tab] 325 mg PO DAILY 04/09/13 07/19/16 02/10/16 History Ondansetron [Zofran Odt] 4 mg PO TID PRN 04/09/13 07/19/16 02/10/16 History Tamsulosin [Flomax] 0.4 mg PO QDAY 04/09/13 07/19/16 02/10/16 History Acetaminophen [Acetaminophen TAB] 2 tab PO PRN PRN 11/21/14 07/19/16 02/10/16 History Vitamin B Complex [Natural B-100] 1 tab PO DAILY 11/21/14 07/19/16 02/10/16 History Ranolazine [Ranexa] 1,000 mg PO BID 02/15/15 07/19/16 02/10/16 History Desloratadine [Clarinex] 5 mg PO DAILY 02/11/16 07/19/16 02/10/16 History Meclizine [Antivert] 12.5 mg PO BID PRN 02/11/16 07/19/16 02/10/16 History Metoprolol Xl [Metoprolol 50 mg PO QDAY tablet 02/14/16 07/19/16 Unknown Rx SUCCINATE ER TAB] Allopurinol [Zyloprim] 100 mg PO QDAY 07/19/16 07/19/16 Unknown History Furosemide [Lasix TAB] 40 mg PO DAILY 07/19/16 07/19/16 Unknown History Active Meds: Active Medications Acetaminophen (Tylenol) 650 mg PO Q4H PRN PRN Reason: Pain MILD(1-3)/Fever >100.5/PIRES Allopurinol (Zyloprim) 100 mg PO QDAY [facility] Bisacodyl (Dulcolax) 10 mg NE QDAY PRN PRN Reason: Constipation unrelieved by [facility] Docusate Sodium (Colace) 100 mg PO BID [facility] Enoxaparin Sodium (Lovenox) 30 mg SUB-Q QDAY [facility] Ferrous Sulfate (Feosol) 325 mg PO DAILY [facility] Furosemide (Lasix) 40 mg IV 0600,1800 [facility] Lisinopril (Zestril) 10 mg PO QDAY [facility] Magnesium Hydroxide (Milk Of Magnesia) 30 ml PO Q4H PRN PRN Reason: Constipation Meclizine HCl (Antivert) 12.5 mg PO BID PRN PRN Reason: Vertigo Metoprolol Succinate (Toprol Xl) 50 mg PO QDAY [facility] Miscellaneous Medication (Desloratadine [Clarinex]) 5 mg PO DAILY [facility] Ondansetron HCl (Zofran Odt) 4 mg PO TID PRN PRN Reason: Nausea Ondansetron HCl (Zofran) 4 mg IV Q8H PRN PRN Reason: N/V unrelieved by [facility] Oxycodone/Acetaminophen (Percocet 5/325) 1 tab PO Q6H PRN PRN Reason: Pain, Moderate (4-6) Ranolazine (Ranexa Er) 1,000 mg PO BID [facility] Senna (Senokot) 8.6 mg PO Q12H [facility] Sodium Chloride (Sodium Chloride Flush Syringe 10 Ml) 10 ml IV PRN PRN PRN Reason: LINE FLUSH Tamsulosin HCl (Flomax) 0.4 mg PO QDAY [facility] Vitamin B Complex/Vitamin C (Allbee With C) 1 each PO QDAY [facility] Review of Systems All systems: negative (per hpi) Physical Examination Vital Signs Temp Pulse Resp BP Pulse Ox 98.2 F 59 L 20 136/58 96 07/18/16 23:32 07/18/16 23:32 07/18/16 23:32 07/18/16 23:32 07/18/16 23:32 General appearance: no acute distress HEENT: Positive: PERRL, EOMI Neck: Positive: neck supple. Negative: JVD/HJR Cardiac: Positive: Reg Rate and Rhythm, Systolic Murmur Lungs: Positive: Decreased Breath Sounds Abdomen: Positive: Soft, Active Bowel Sounds Extremities: Present: +2 Edema Results 07/18/16 23:40 07/18/16 23:40 Cardiac Enzymes 07/19/16 Range/Units 10:21 CK-MB (CK-2) 2.7 (0.0-4.0) ng/mL Assessment and Plan Acute on chronic systolic heart failure Non ischemic cardiomyopathy CKD SSS s/p PPM Htn DM Recommend: Gentle diuresis while closely monitoring renal function. Will titrate medical therapy for non ischemic cardiomyopathy as tolerated.
[2016-07-19 14:13] LABS: Creatine Kinase MB 2.5 ng/mL (0.0-4.0)
--- NOTE | 2016-07-19 14:32 | Admit Criteria Form ---
Admission Criteria Documentation: HEART FAILURE: COMMON COMPLICATIONS Clinical Indications for Inpatient Care (Place 'X' for any and all applicable criteria): Ongoing inpatient care may be indicated for heart failure with ANY ONE of the following (1)(2)(3)(4)(5): [ ]I. Ongoing need for care for primary condition requiring frequent therapy adjustments because of changes in cardiac function (eg, drug dosage changes for drugs that are renally metabolized) [ ]II. New-onset heart failure [ ]III. Heart failure with decreased urine output not responsive to attempts to optimize volume status [ ]IV. Acute cardiac ischemia causing or associated with failure [X ]V. Complications of heart failure, including ANY ONE of the following: [ ]a) Pericardial effusion [ ]b) Symptomatic pleural effusion [ ]c) O2 saturation <90% or PO2 < 60 mm Hg (8.0 kPa) on room air or require baseline supplemental O2 [ ]d) Tachypnea [X ]e) Dyspnea [ ]f) Syncope [ ]g) Change in mental status [ ]h) Acute renal insufficiency that is severe (reduction of more than 50% in estimated glomerular filtration rate from baseline) or progressive reduction of more than 25% in estimated glomerular filtration rate from baseline, with creatinine continuing to rise) [ ]i) Hemodynamic instability [ ]j) Anasarca [ ]k) Clinically significant metabolic abnormalities due to heart failure (eg, new-onset metabolic acidosis) Extended stay beyond goal length of stay for primary condition may be needed until ALL of the following are present(1)(3): [ ]a) Stable and effective diuretic regimen established (or patient on stable dialysis regimen if in chronic renal failure) [ ]b) Breathing comfortably at rest [ ]c) Saturation of arterial oxygen greater than 90% or at acceptable baseline [ ]d) Pulmonary edema absent or improved [ ]e) Hemodynamic stability [ ]f) Volume status acceptable on oral medication [ ]g) Peripheral or sacral edema absent or improved [ ]h) Renal function stable and manageable at a lower level of care [ ]i) Complications (eg, pleural effusion) resolved or manageable at a lower level of care [ ]j) Patient or caregiver has received written discharge instructions or educational material addressing activity level, diet, discharge medications, follow-up appointment, weight monitoring, and what to do if symptoms worsen The original [facility] content created by [employer] has been revised. The portions of the content which have been revised are identified through the use of italic text or in bold, and [facility] has neither reviewed nor approved the modified material.All other unmodified content is copyright [facility]. Please see references footnoted in the original [facility] edition 2016 Admission Criteria Met: Yes
[2016-07-19 16:59] LABS: Creatine Kinase MB 2.5 ng/mL (0.0-4.0)
[2016-07-19] MEDS ORDERED: D50W (25GM) IV ONE (19:38)
[2016-07-19] MEDS: FEOSOL PO SCH (21:10)
[2016-07-19] MEDS: ZYLOPRIM PO SCH (21:11)
[2016-07-19] MEDS: COLACE PO SCH ×2 (21:11→23:27)
[2016-07-19] MEDS: FLOMAX PO SCH (21:11)
[2016-07-19] MEDS: TOPROL XL PO SCH (21:12)
[2016-07-19] MEDS: SENOKOT PO SCH ×2 (21:12→23:27)
[2016-07-19] MEDS: ZESTRIL PO SCH (21:13)
[2016-07-19] MEDS: LOVENOX SUB-Q SCH (21:13)
[2016-07-19] MEDS: ALLBEE WITH C PO SCH (21:13)
[2016-07-19] MEDS: RANEXA ER PO SCH ×2 (21:14→23:27)
[2016-07-19] MEDS: CLARITIN PO SCH (21:14)
[2016-07-19] MEDS: LASIX IV SCH (21:15)
[2016-07-20 05:16] LABS: Albumin 3.2 g/dL (3.9-5); Albumin/Globulin Ratio 1.1 %; BUN/Creatinine Ratio 13.68; Basophils % (Auto) 0.2 % (0.0-1.8); Bilirubin,Total 0.8 mg/dL (0.1-1.2); Calcium 8.5 mg/dL (8.4-10.2); Chloride 100.8 mmol/L (98-107); Eosinophils % (Auto) 2.1 % (0.0-4.3); Hematocrit 27.2 % (35.5-45.6); Hemoglobin 8.5 gm/dl (11.8-15.2); Mean Corpuscular HGB Conc 31 % (32-34); Mean Corpuscular Hemoglobin 30 pg (28-32); Mean Corpuscular Volume 97 fl (84-94); Platelet Count 104 K/mm3 (140-440); Potassium 3.5 mmol/L (3.6-5.0); Red Blood Count 2.79 M/mm3 (3.65-5.03); Total Protein 6.2 g/dL (6.3-8.2); White Blood Count 4.7 K/mm3 (4.5-11.0)
[2016-07-20 05:25] LABS: Red Cell Distribution Width 23.7 % (13.2-15.2)
[2016-07-20] MEDS: LASIX IV SCH ×2 (06:08→17:03)
[2016-07-20] MEDS: FEOSOL PO SCH (10:10)
[2016-07-20] MEDS: ZYLOPRIM PO SCH ×2 (10:11→10:30)
[2016-07-20] MEDS: LOVENOX SUB-Q SCH (10:12)
[2016-07-20] MEDS: FLOMAX PO SCH (10:12)
[2016-07-20] MEDS: TOPROL XL PO SCH (10:12)
[2016-07-20] MEDS: ALLBEE WITH C PO SCH (10:12)
[2016-07-20] MEDS: ZESTRIL PO SCH (10:12)
[2016-07-20] MEDS: COLACE PO SCH ×2 (10:12→21:38)
[2016-07-20] MEDS: CLARITIN PO SCH (10:12)
[2016-07-20] MEDS: RANEXA ER PO SCH ×2 (10:12→21:38)
[2016-07-20] MEDS: SENOKOT PO SCH ×3 (10:13→22:26)
--- NOTE | 2016-07-20 12:22 | Progress Note ---
Assessment and Plan Acute on chronic systolic heart failure Non ischemic cardiomyopathy CKD SSS s/p PPM Htn DM Recommend: Gentle diuresis while closely monitoring renal function. Subjective Date of service: 07/20/16 Interval history: No new complaints. Dyspnea slightly better. Objective Vital Signs Temp Pulse Pulse Resp Resp BP BP 07/20/16 08:48 97.6 F 63 20 130/65 07/20/16 08:08 60 60 07/20/16 04:00 98.0 F 61 18 118/60 07/20/16 00:27 98.3 F 61 18 152/70 07/19/16 23:15 20 07/19/16 22:54 60 07/19/16 22:30 60 20 07/19/16 21:16 98.8 F 18 L 18 07/19/16 21:12 60 125/73 07/19/16 21:01 60 19 183/126 07/19/16 20:51 62 12 183/126 07/19/16 20:41 60 18 125/53 07/19/16 20:31 60 16 125/53 07/19/16 20:21 60 13 117/46 07/19/16 20:11 60 16 128/54 07/19/16 20:01 60 17 128/54 07/19/16 19:51 62 15 119/64 07/19/16 19:41 61 11 L 126/58 07/19/16 19:31 60 19 126/58 07/19/16 19:21 70 13 126/58 07/19/16 19:11 60 18 126/58 07/19/16 19:01 62 18 126/58 07/19/16 18:51 60 20 136/56 07/19/16 18:41 61 20 140/60 07/19/16 18:30 60 20 140/60 07/19/16 18:21 63 14 131/48 07/19/16 18:11 60 17 125/59 07/19/16 18:01 60 19 124/45 07/19/16 17:51 61 17 117/57 07/19/16 17:41 80 19 122/53 07/19/16 17:31 60 19 125/59 07/19/16 17:21 60 19 122/53 07/19/16 17:11 60 18 111/51 07/19/16 17:01 60 17 98/51 07/19/16 16:51 69 20 98/51 07/19/16 16:41 70 18 96/37 07/19/16 16:31 60 21 122/43 07/19/16 16:21 60 11 L 122/43 07/19/16 16:11 60 12 116/45 07/19/16 16:01 60 16 116/45 07/19/16 15:51 62 16 127/58 07/19/16 15:41 68 24 127/58 07/19/16 15:30 60 18 127/58 07/19/16 15:21 60 21 135/58 07/19/16 15:11 60 20 133/56 07/19/16 15:00 60 18 133/56 07/19/16 14:51 60 20 125/52 07/19/16 14:41 60 22 102/51 07/19/16 14:30 60 20 124/54 07/19/16 14:21 60 18 127/57 07/19/16 14:11 60 20 109/53 07/19/16 14:00 70 22 109/53 07/19/16 13:51 60 21 102/51 07/19/16 13:41 61 18 115/46 07/19/16 13:31 62 21 124/55 07/19/16 13:21 70 20 124/55 07/19/16 13:11 60 18 123/59 07/19/16 13:01 60 20 123/59 07/19/16 12:51 60 21 126/57 07/19/16 12:41 60 20 121/55 07/19/16 12:31 60 19 121/55 BP Pulse Ox 07/20/16 08:48 95 07/20/16 08:08 07/20/16 04:00 98 07/20/16 00:27 96 07/19/16 23:15 07/19/16 22:54 07/19/16 22:30 96 07/19/16 21:16 130/57 99 07/19/16 21:12 07/19/16 21:01 100 07/19/16 20:51 100 07/19/16 20:41 100 07/19/16 20:31 100 07/19/16 20:21 99 07/19/16 20:11 100 07/19/16 20:01 100 07/19/16 19:51 100 07/19/16 19:41 100 07/19/16 19:31 99 07/19/16 19:21 98 07/19/16 19:11 100 07/19/16 19:01 100 07/19/16 18:51 99 07/19/16 18:41 100 07/19/16 18:30 99 07/19/16 18:21 99 07/19/16 18:11 94 07/19/16 18:01 99 07/19/16 17:51 100 07/19/16 17:41 96 07/19/16 17:31 98 07/19/16 17:21 98 07/19/16 17:11 99 07/19/16 17:01 100 07/19/16 16:51 92 07/19/16 16:41 97 07/19/16 16:31 88 07/19/16 16:21 96 07/19/16 16:11 92 07/19/16 16:01 94 07/19/16 15:51 93 07/19/16 15:41 89 07/19/16 15:30 88 07/19/16 15:21 92 07/19/16 15:11 92 07/19/16 15:00 94 07/19/16 14:51 93 07/19/16 14:41 86 07/19/16 14:30 91 07/19/16 14:21 86 07/19/16 14:11 89 07/19/16 14:00 97 07/19/16 13:51 89 07/19/16 13:41 93 07/19/16 13:31 96 07/19/16 13:21 96 07/19/16 13:11 93 07/19/16 13:01 89 07/19/16 12:51 86 07/19/16 12:41 91 07/19/16 12:31 88 - Physical Examination HEENT: Positive: PERRL, EOMI Neck: Positive: neck supple. Negative: JVD/HJR Cardiac: Positive: Reg Rate and Rhythm Lungs: Positive: Normal Breath Sounds Abdomen: Positive: Soft, Active Bowel Sounds Extremities: Present: +2 Edema - Labs and Meds Cardiac Enzymes 07/19/16 07/19/16 07/20/16 Range/Units 13:25 16:05 03:50 AST 21 (5-40) units/L CK-MB (CK-2) 2.5 2.5 (0.0-4.0) ng/mL CBC 07/20/16 Range/Units 03:50 WBC 4.7 (4.5-11.0) K/mm3 RBC 2.79 L (3.65-5.03) M/mm3 Hgb 8.5 L (11.8-15.2) gm/dl Hct 27.2 L (35.5-45.6) % Plt Count 104 L (140-440) K/mm3 Lymph # 0.3 L (1.2-5.4) K/mm3 [place] # 0.5 (0.0-0.8) K/mm3 Eos # 0.1 (0.0-0.4) K/mm3 Baso # 0.0 (0.0-0.1) K/mm3 Comprehensive Metabolic Panel 07/20/16 Range/Units 03:50 Sodium 142 (137-145) mmol/L Potassium 3.5 L (3.6-5.0) mmol/L Chloride 100.8 (98-107) mmol/L Carbon Dioxide 28 (22-30) mmol/L BUN 26 H (9-20) mg/dL Creatinine 1.9 H (0.8-1.5) mg/dL Glucose 79 (75-100) mg/dL Calcium 8.5 (8.4-10.2) mg/dL AST 21 (5-40) units/L ALT 9 (7-56) units/L Alkaline Phosphatase 80 (35-129) units/L Total Protein 6.2 L (6.3-8.2) g/dL Albumin 3.2 L (3.9-5) g/dL
[2016-07-21] MEDS: LASIX IV SCH ×2 (05:28→17:04)
[2016-07-21] MEDS: CLARITIN PO SCH (09:32)
[2016-07-21] MEDS: ALLBEE WITH C PO SCH (09:32)
[2016-07-21] MEDS: ZESTRIL PO SCH (09:33)
[2016-07-21] MEDS: ZYLOPRIM PO SCH (09:33)
[2016-07-21] MEDS: COLACE PO SCH ×2 (09:33→22:10)
[2016-07-21] MEDS: FLOMAX PO SCH (09:33)
[2016-07-21] MEDS: TOPROL XL PO SCH (09:34)
[2016-07-21] MEDS: RANEXA ER PO SCH ×2 (09:35→22:10)
[2016-07-21] MEDS: LOVENOX SUB-Q SCH (09:35)
[2016-07-21] MEDS: FEOSOL PO SCH (10:00)
[2016-07-21] MEDS: SENOKOT PO SCH ×2 (12:01→22:10)
--- NOTE | 2016-07-21 16:16 | Progress Note ---
Assessment and Plan Acute on chronic systolic heart failure Non ischemic cardiomyopathy no significant coronary disease, EF 65% on [facility] 2012 EF reduced to 35-40% on echo 05/2016 CKD Hx of SSS s/p PPM Htn DM Subjective Date of service: 07/21/16 Interval history: Patient reports his shortness of breath is less. Objective Vital Signs Temp Pulse Pulse Pulse Resp BP Pulse Ox 07/21/16 11:30 98.0 F 60 18 95/51 98 07/21/16 10:00 62 07/21/16 07:30 97.8 F 92 H 16 138/74 100 07/21/16 07:28 18 07/21/16 05:19 95 07/21/16 04:00 97.9 F 63 22 96 07/21/16 00:00 97.9 F 60 20 129/56 97 07/20/16 22:00 64 07/20/16 21:34 93 07/20/16 21:13 97.8 F 70 122/58 95 07/20/16 17:21 97.3 F L 60 20 170/76 66 L - Physical Examination General: No Apparent Distress HEENT: Positive: PERRL Neck: Positive: trachea midline Cardiac: Positive: Reg Rate and Rhythm Abdomen: Positive: Soft, Active Bowel Sounds Extremities: Present: +2 Edema
--- NOTE | 2016-07-22 00:28 | Progress Note ---
Assessment and Plan Assessment and plan: 85-year-old male with a history of sick sinus syndrome with a pacemaker,, arthritis, asthma, congestive heart failure, dementia and diabetes, GERD, stage III kidney disease, gout and hypertension. P. Recent cardiac cath showed non obstructive disease and echo in 06/10 revealed EF of 35%. He presents with worsening sob, COLON and bipedal Edema 1. CHF exacerbation continue IV diuresis, optimize meds, fup echo, cardiology input appreciated 2. CKD stable, avoid nephrotoxic agents 3. DM continue SSI 3. acute hypoxic respiratory failure -continue oxygen supplementation -evaluate for home oxygen prior to dc 4. HTN continue current meds History Interval history: sob is improved, he states that he does not use oxygen at home, his legs are still swollen. He says that SOB has gotten so bad now that he gets winded with mild exertion, he describes the distance as a car length, which is far enough to wear him out Hospitalist Physical - Constitutional Vitals: Temp Pulse Resp BP Pulse Ox 97.7 F 62 18 128/60 94 07/21/16 20:00 07/21/16 20:00 07/21/16 20:00 07/21/16 20:00 07/21/16 20:00 General appearance: Present: no acute distress - EENT Eyes: Present: PERRL, EOM intact ENT: other (hard of hearing) - Neck Neck: Present: supple, normal ROM - Respiratory Respiratory effort: pursed lips Respiratory: bilateral: rales (bases) - Cardiovascular Rhythm: regular Heart Sounds: Present: S1 & S2 - Extremities Extremities: no ischemia, pulses intact Extremity abnormal: edema - Abdominal General gastrointestinal: soft, non-tender, non-distended - Integumentary Integumentary: Present: clear, warm, dry - Psychiatric Psychiatric: appropriate mood/affect - Neurologic Neurologic: CNII-XII intact Results - Labs CBC & Chem 7: 07/20/16 03:50 07/20/16 03:50 Labs: Laboratory Last Values WBC 4.7 K/mm3 (4.5-11.0) 07/20/16 03:50 RBC 2.79 M/mm3 (3.65-5.03) L 07/20/16 03:50 Hgb 8.5 gm/dl (11.8-15.2) L 07/20/16 03:50 Hct 27.2 % (35.5-45.6) L 07/20/16 03:50 MCV 97 fl (84-94) H 07/20/16 03:50 MCH 30 pg (28-32) 07/20/16 03:50 MCHC 31 % (32-34) L 07/20/16 03:50 RDW 23.7 % (13.2-15.2) H 07/20/16 03:50 Plt Count 104 K/mm3 (140-440) L 07/20/16 03:50 Lymph % (Auto) 6.1 % (13.4-35.0) L 07/20/16 03:50 [place] % (Auto) 10.6 % (0.0-7.3) H 07/20/16 03:50 Eos % (Auto) 2.1 % (0.0-4.3) 07/20/16 03:50 Baso % (Auto) 0.2 % (0.0-1.8) 07/20/16 03:50 Lymph # 0.3 K/mm3 (1.2-5.4) L 07/20/16 03:50 [place] # 0.5 K/mm3 (0.0-0.8) 07/20/16 03:50 Eos # 0.1 K/mm3 (0.0-0.4) 07/20/16 03:50 Baso # 0.0 K/mm3 (0.0-0.1) 07/20/16 03:50 Seg Neutrophils % 81.0 % (40.0-70.0) H 07/20/16 03:50 Seg Neutrophils # 3.8 K/mm3 (1.8-7.7) 07/20/16 03:50 PT 15.7 Sec. (12.2-14.9) H 07/18/16 23:40 INR 1.26 (0.87-1.13) H 07/18/16 23:40 Sodium 142 mmol/L (137-145) 07/20/16 03:50 Potassium 3.5 mmol/L (3.6-5.0) L 07/20/16 03:50 Chloride 100.8 mmol/L (98-107) 07/20/16 03:50 Carbon Dioxide 28 mmol/L (22-30) 07/20/16 03:50 Anion Gap 17 mmol/L 07/20/16 03:50 BUN 26 mg/dL (9-20) H 07/20/16 03:50 Creatinine 1.9 mg/dL (0.8-1.5) H 07/20/16 03:50 Estimated GFR 41 ml/min 07/20/16 03:50 BUN/Creatinine Ratio 13.68 % 07/20/16 03:50 Glucose 79 mg/dL (75-100) 07/20/16 03:50 POC Glucose 125 (70-105) H 07/21/16 22:02 Calcium 8.5 mg/dL (8.4-10.2) 07/20/16 03:50 Total Bilirubin 0.8 mg/dL (0.1-1.2) 07/20/16 03:50 AST 21 units/L (5-40) 07/20/16 03:50 ALT 9 units/L (7-56) 07/20/16 03:50 Alkaline Phosphatase 80 units/L (35-129) 07/20/16 03:50 Total Creatine Kinase 133 units/L (55-170) 07/19/16 16:05 CK-MB (CK-2) 2.5 ng/mL (0.0-4.0) 07/19/16 16:05 CK-MB (CK-2) Rel Index 1.8 (0-4) 07/19/16 16:05 Troponin T 0.036 ng/mL (0.00-0.029) H D 07/19/16 16:05 NT-Pro-B Natriuret Pep 990.2 pg/mL (0-900) H 07/18/16 23:40 Total Protein 6.2 g/dL (6.3-8.2) L 07/20/16 03:50 Albumin 3.2 g/dL (3.9-5) L 07/20/16 03:50 Albumin/Globulin Ratio 1.1 % 07/20/16 03:50 Triglycerides 80 mg/dL (2-149) 07/18/16 23:40 Cholesterol 94 mg/dL (50-199) 07/18/16 23:40 LDL Cholesterol Direct 43 mg/dL (50-130) L 07/18/16 23:40 HDL Cholesterol 35 mg/dL (40-59) L 07/18/16 23:40 Cholesterol/HDL Ratio 2.68 % 07/18/16 23:40 Urine Color Yellow (Yellow) 07/18/16 11:00 Urine Turbidity Clear (Clear) 07/18/16 11:00 Urine pH 5.0 (5.0-7.0) 07/18/16 11:00 Ur Specific [place] 1.012 (1.003-1.030) 07/18/16 11:00 Urine Protein 30 mg/dl mg/dL (Negative) 07/18/16 11:00 Urine Glucose (UA) Neg mg/dL (Negative) 07/18/16 11:00 Urine Ketones Neg mg/dL (Negative) 07/18/16 11:00 Urine Blood Neg (Negative) 07/18/16 11:00 Urine Nitrite Neg (Negative) 07/18/16 11:00 Urine Bilirubin Neg (Negative) 07/18/16 11:00 Urine Urobilinogen < 2.0 mg/dL (<2.0) 07/18/16 11:00 Ur Leukocyte Esterase Neg (Negative) 07/18/16 11:00 Urine WBC (Auto) 1.0 /HPF (0.0-6.0) 07/18/16 11:00 Urine RBC (Auto) < 1.0 /HPF (0.0-6.0) 07/18/16 11:00 Hyaline Casts 1 /LPF 07/18/16 11:00 Urine Mucus Few /HPF 07/18/16 11:00
--- NOTE | 2016-07-22 00:31 | Progress Note ---
Assessment and Plan Assessment and plan: 85-year-old male with a history of sick sinus syndrome with a pacemaker,, arthritis, asthma, congestive heart failure, dementia and diabetes, GERD, stage III kidney disease, gout and hypertension. P. Recent cardiac cath showed non obstructive disease and echo in 06/10 revealed EF of 35%. He presents with worsening sob, COLON and bipedal Edema 1. CHF exacerbation continue IV diuresis, optimize meds, fup echo shows EF improved to 50%, cardiology input appreciated, evaluate for pulmonary etiology to Dyspnea 2. CKD stable, avoid nephrotoxic agents 3. DM continue SSI 3. acute hypoxic respiratory failure -continue oxygen supplementation, attempt to wean of oxygen -evaluate for home oxygen prior to dc 4. HTN continue current meds 5. COPD? start steroids, nebs and abx, obtain bedside PFT History Interval history: sob is improved, he states that he does not use oxygen at home, his legs are still swollen. He says that SOB has gotten so bad now that he gets winded with mild exertion, he describes the distance as a car length, which is far enough to wear him out Hospitalist Physical - Physical exam Narrative exam: General appearance: Present: no acute distress - EENT Eyes: Present: PERRL, EOM intact ENT: other (hard of hearing) - Neck Neck: Present: supple, normal ROM - Respiratory Respiratory effort: pursed lips Respiratory: bilateral: rales (bases), decreased air entry - Cardiovascular Rhythm: regular Heart Sounds: Present: S1 & S2 - Extremities Extremities: no ischemia, pulses intact Extremity abnormal: 1 plus bipedal edema - Abdominal General gastrointestinal: soft, non-tender, non-distended - Integumentary Integumentary: Present: clear, warm, dry - Psychiatric Psychiatric: appropriate mood/affect - Neurologic Neurologic: CNII-XII intact - Constitutional Vitals: Temp Pulse Resp BP Pulse Ox 97.7 F 62 18 128/60 94 07/21/16 20:00 07/21/16 20:00 07/21/16 20:00 07/21/16 20:00 07/21/16 20:00 General appearance: Present: no acute distress Results - Labs CBC & Chem 7: 07/20/16 03:50 07/20/16 03:50 Labs: Laboratory Last Values WBC 4.7 K/mm3 (4.5-11.0) 07/20/16 03:50 RBC 2.79 M/mm3 (3.65-5.03) L 07/20/16 03:50 Hgb 8.5 gm/dl (11.8-15.2) L 07/20/16 03:50 Hct 27.2 % (35.5-45.6) L 07/20/16 03:50 MCV 97 fl (84-94) H 07/20/16 03:50 MCH 30 pg (28-32) 07/20/16 03:50 MCHC 31 % (32-34) L 07/20/16 03:50 RDW 23.7 % (13.2-15.2) H 07/20/16 03:50 Plt Count 104 K/mm3 (140-440) L 07/20/16 03:50 Lymph % (Auto) 6.1 % (13.4-35.0) L 07/20/16 03:50 [place] % (Auto) 10.6 % (0.0-7.3) H 07/20/16 03:50 Eos % (Auto) 2.1 % (0.0-4.3) 07/20/16 03:50 Baso % (Auto) 0.2 % (0.0-1.8) 07/20/16 03:50 Lymph # 0.3 K/mm3 (1.2-5.4) L 07/20/16 03:50 [place] # 0.5 K/mm3 (0.0-0.8) 07/20/16 03:50 Eos # 0.1 K/mm3 (0.0-0.4) 07/20/16 03:50 Baso # 0.0 K/mm3 (0.0-0.1) 07/20/16 03:50 Seg Neutrophils % 81.0 % (40.0-70.0) H 07/20/16 03:50 Seg Neutrophils # 3.8 K/mm3 (1.8-7.7) 07/20/16 03:50 PT 15.7 Sec. (12.2-14.9) H 07/18/16 23:40 INR 1.26 (0.87-1.13) H 07/18/16 23:40 Sodium 142 mmol/L (137-145) 07/20/16 03:50 Potassium 3.5 mmol/L (3.6-5.0) L 07/20/16 03:50 Chloride 100.8 mmol/L (98-107) 07/20/16 03:50 Carbon Dioxide 28 mmol/L (22-30) 07/20/16 03:50 Anion Gap 17 mmol/L 07/20/16 03:50 BUN 26 mg/dL (9-20) H 07/20/16 03:50 Creatinine 1.9 mg/dL (0.8-1.5) H 07/20/16 03:50 Estimated GFR 41 ml/min 07/20/16 03:50 BUN/Creatinine Ratio 13.68 % 07/20/16 03:50 Glucose 79 mg/dL (75-100) 07/20/16 03:50 POC Glucose 125 (70-105) H 07/21/16 22:02 Calcium 8.5 mg/dL (8.4-10.2) 07/20/16 03:50 Total Bilirubin 0.8 mg/dL (0.1-1.2) 07/20/16 03:50 AST 21 units/L (5-40) 07/20/16 03:50 ALT 9 units/L (7-56) 07/20/16 03:50 Alkaline Phosphatase 80 units/L (35-129) 07/20/16 03:50 Total Creatine Kinase 133 units/L (55-170) 07/19/16 16:05 CK-MB (CK-2) 2.5 ng/mL (0.0-4.0) 07/19/16 16:05 CK-MB (CK-2) Rel Index 1.8 (0-4) 07/19/16 16:05 Troponin T 0.036 ng/mL (0.00-0.029) H D 07/19/16 16:05 NT-Pro-B Natriuret Pep 990.2 pg/mL (0-900) H 07/18/16 23:40 Total Protein 6.2 g/dL (6.3-8.2) L 07/20/16 03:50 Albumin 3.2 g/dL (3.9-5) L 07/20/16 03:50 Albumin/Globulin Ratio 1.1 % 07/20/16 03:50 Triglycerides 80 mg/dL (2-149) 07/18/16 23:40 Cholesterol 94 mg/dL (50-199) 07/18/16 23:40 LDL Cholesterol Direct 43 mg/dL (50-130) L 07/18/16 23:40 HDL Cholesterol 35 mg/dL (40-59) L 07/18/16 23:40 Cholesterol/HDL Ratio 2.68 % 07/18/16 23:40 Urine Color Yellow (Yellow) 07/18/16 11:00 Urine Turbidity Clear (Clear) 07/18/16 11:00 Urine pH 5.0 (5.0-7.0) 07/18/16 11:00 Ur Specific [place] 1.012 (1.003-1.030) 07/18/16 11:00 Urine Protein 30 mg/dl mg/dL (Negative) 07/18/16 11:00 Urine Glucose (UA) Neg mg/dL (Negative) 07/18/16 11:00 Urine Ketones Neg mg/dL (Negative) 07/18/16 11:00 Urine Blood Neg (Negative) 07/18/16 11:00 Urine Nitrite Neg (Negative) 07/18/16 11:00 Urine Bilirubin Neg (Negative) 07/18/16 11:00 Urine Urobilinogen < 2.0 mg/dL (<2.0) 07/18/16 11:00 Ur Leukocyte Esterase Neg (Negative) 07/18/16 11:00 Urine WBC (Auto) 1.0 /HPF (0.0-6.0) 07/18/16 11:00 Urine RBC (Auto) < 1.0 /HPF (0.0-6.0) 07/18/16 11:00 Hyaline Casts 1 /LPF 07/18/16 11:00 Urine Mucus Few /HPF 07/18/16 11:00
[2016-07-22] MEDS ORDERED: ZITHROMAX PO ONE (00:32)
[2016-07-22] MEDS: DUONEB 0.5 MG-3 MG/3 ML SOLN IH SCH ×3 (02:58→14:22)
[2016-07-22] MEDS: LASIX IV SCH (05:20)
[2016-07-22 05:51] VITALS: BP 125/72
[2016-07-22] MEDS: FEOSOL PO SCH (09:03)
[2016-07-22] MEDS: CLARITIN PO SCH (09:03)
[2016-07-22] MEDS: ALLBEE WITH C PO SCH (09:04)
[2016-07-22] MEDS: ZESTRIL PO SCH (09:04)
[2016-07-22] MEDS: LOVENOX SUB-Q SCH (09:04)
[2016-07-22] MEDS: FLOMAX PO SCH (09:04)
[2016-07-22] MEDS: ZYLOPRIM PO SCH (09:04)
[2016-07-22] MEDS: RANEXA ER PO SCH (09:04)
[2016-07-22] MEDS: COLACE PO SCH (09:04)
[2016-07-22] MEDS: TOPROL XL PO SCH (09:04)
[2016-07-22] MEDS: SENOKOT PO SCH (10:16)
--- NOTE | 2016-07-22 11:30 | Progress Note ---
Assessment and Plan Shortness of breath, chronic Corpulmonale Echocardiogram done this admission shows left ventricle systolic function at the lower limits of normal, ejection fraction 50-55%. The major finding on the echocardiogram is dilatation of the right heart chambers, at least moderate tricuspid regurgitation, and at least moderate pulmonary hypertension with pulmonary artery systolic pressures of 55-60mmHg. Chronic Anemia CKD Hx of SSS s/p PPM Htn DM No significant coronary disease, EF 65% on [facility] 2013 Recommend: Pulmonary evaluation for his chronic shortness of breath and corpulmonale. Conservative cardiac management. Subjective Date of service: 07/22/16 Interval history: No interval changes. Objective Vital Signs Temp Pulse Pulse Pulse Resp Resp BP 07/22/16 10:32 69 07/22/16 08:42 68 20 07/22/16 08:32 62 20 07/22/16 04:00 98.6 F 60 24 125/72 07/22/16 03:15 62 18 07/22/16 02:58 60 18 07/22/16 02:57 07/22/16 02:51 07/22/16 00:00 97.8 F 70 20 124/59 07/21/16 20:00 97.7 F 62 18 128/60 07/21/16 16:30 97.8 F 62 16 116/59 07/21/16 11:30 98.0 F 60 18 95/51 Pulse Ox 07/22/16 10:32 07/22/16 08:42 07/22/16 08:32 97 07/22/16 04:00 95 07/22/16 03:15 07/22/16 02:58 07/22/16 02:57 92 07/22/16 02:51 92 07/22/16 00:00 96 07/21/16 20:00 94 07/21/16 16:30 98 07/21/16 11:30 98 - Physical Examination General: No Apparent Distress HEENT: Positive: PERRL Neck: Positive: trachea midline Cardiac: Positive: Other (paced) Abdomen: Positive: Soft, Active Bowel Sounds Extremities: Present: +2 Edema
== END 2016-07-22 16:00 | disposition home or self-care (01) | DRG 291 ==
LOC: ED 22:51 → 4A 07-19 09:45
PROVIDERS: ADMIT Internal Medicine; ATTEND Internal Medicine
DX: I13.0 Hypertensive heart and chronic kidney disease with heart failure and stage 1 through stage 4 chronic kidney disease, or unspecified chronic kidney disease (principal); I50.23 Acute on chronic systolic (congestive) heart failure; J96.01 Acute respiratory failure with hypoxia; N17.9 Acute kidney failure, unspecified; I42.9 Cardiomyopathy, unspecified; E11.9 Type 2 diabetes mellitus without complications; N18.9 Chronic kidney disease, unspecified; I49.5 Sick sinus syndrome; M19.90 Unspecified osteoarthritis, unspecified site; J44.9 Chronic obstructive pulmonary disease, unspecified; F03.90 Unspecified dementia, unspecified severity, without behavioral disturbance, psychotic disturbance, mood disturbance, and anxiety; K21.9 Gastro-esophageal reflux disease without esophagitis; M10.9 Gout, unspecified; D64.9 Anemia, unspecified; J45.909 Unspecified asthma, uncomplicated; I45.10 Unspecified right bundle-branch block; I07.1 Rheumatic tricuspid insufficiency; I27.81 Cor pulmonale (chronic); Z87.442 Personal history of urinary calculi; Z95.0 Presence of cardiac pacemaker; Z82.49 Family history of ischemic heart disease and other diseases of the circulatory system
CPT/HCPCS: 36415; 71020; 80053; 80061; 81001; 82550; 82553; 82962; 83880; 84484; 85025; 85610; 93005; 93010; 93306; 94010; 94640; 94760; 96374; J1650; J1940; J2920